=== PATIENT | female | born 2000 | race Caucasian/White ===

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

== ENCOUNTER 2018-04-06 14:05 | Outpatient (CLI) | payer BC ==
--- NOTE | 2018-04-06 15:52 | XRAY Report ---
Reason: R SUBOCCIPITAL 2 CM BONY PROTRUBARANCE Procedure Date: 04/06/2018 Accession Number: [id number] / [id number] Procedure: XR - Skull 2 View CPT Code: FULL RESULT: EXAM: SKULL RADIOGRAPHY EXAM DATE: 04/06/2018 02:47 PM. CLINICAL HISTORY: Right suboccipital 2 cm bony protuberance. COMPARISON: None. TECHNIQUE: 2 views. FINDINGS: Bones: A gently sloping exostosis is identified in the suboccipital region on the lateral radiograph which corresponds the palpable mass on physical examination. There is no lytic component or evidence of aggressive periosteal reaction. No fractures or bone lesions. Sinuses: Normal. No opacities or fluid levels. Other: Normal. No soft tissue swelling. IMPRESSION: Benign-appearing osseous protuberance. RADIA
== END 2018-04-06 14:06 | disposition home or self-care (01) ==
LOC: DI 14:05
PROVIDERS: ATTEND Pediatrics
DX: M89.9 Disorder of bone, unspecified (principal)
CPT/HCPCS: 70250

== ENCOUNTER 2018-04-23 10:10 | Outpatient (CLI) | payer BC ==
--- NOTE | 2018-04-27 14:24 | Ultrasound Report ---
Reason: R OCCIPITAL LUMP BONY SHADOWN ON XRAY Procedure Date: 04/23/2018 Accession Number: [id number] / [id number] Procedure: US - Head or Neck Soft Tissue CPT Code: FULL RESULT: EXAM: FOCAL SOFT TISSUE ULTRASOUND OF THE HEAD EXAM DATE: 04/23/2018 10:48 AM. CLINICAL HISTORY: R OCCIPITAL LUMP BONY SHADOWN ON XRAY. COMPARISON: SKULL 2 VIEW 04/06/2018 2:59 PM. TECHNIQUE: Real-time sonographic imaging was performed by the carton wrapper utilizing color-flow. Multiple rental representative static images were saved for review. FINDINGS: A bony protuberance is identified along the right parieto-occipital region behind the ear which does not demonstrate a soft tissue component or cartilaginous cap. There is no abnormal blood flow by color Doppler. Interpretation is made in conjunction with the recently obtained radiographs. IMPRESSION: Benign-appearing bony protuberance without demonstrable soft tissue component or cartilage cap. The appearance is benign with no further radiologic workup recommended unless clinically indicated. RADIA
== END 2018-04-23 10:11 | disposition home or self-care (01) ==
LOC: DI 10:10
PROVIDERS: ATTEND Pediatrics
DX: R22.0 Localized swelling, mass and lump, head (principal)
CPT/HCPCS: 76536